=== PATIENT | female | born 1965 | race Caucasian/White ===

== ENCOUNTER 2023-06-08 07:46 | Day surgery (SDC) | payer OTHER ==
[2023-06-08] MEDS ORDERED: ACETAMINOPHEN 1000 MG/100 ML BAG IVPB ONE ×2 (08:36→18:31)
[2023-06-08 08:46] VITALS: BMI 28.3
[2023-06-08 09:19] LABS: INR 1.07 (0.83-1.09); PROTHROMBIN TIME (PATIENT) 12.4 SEC (9.7-13.0)
[2023-06-08] MEDS ORDERED: ACETAMINOPHEN 1000 MG/100 ML BAG IVPB PRN (09:19)
[2023-06-08 09:20] LABS: HEMATOCRIT 39.2 % (32.4-45.2); HEMOGLOBIN 12.6 G/dL (10.7-15.3); MCHC 32.2 g/dl (32.0-36.0); MEAN CELL VOLUME 90.1 fl (80-96); MEAN PLT VOLUME 7.8 fl (7.5-11.1); PLATELET COUNT 314.6 10^3/uL (134-434); RBC 4.35 10^6/uL (3.60-5.2); RDW 14.8 % (11.6-15.6); WHITE BLOOD COUNT 6.1 10^3/uL (4.0-10.8)
[2023-06-08 09:29] LABS: ALBUMIN 4.2 g/dl (3.4-5.0); BILIRUBIN,TOTAL 0.5 mg/dl (0.2-1); CALCIUM 9.8 mg/dl (8.5-10.1); CREATININE 0.7 mg/dl (0.6-1.3); POTASSIUM 3.9 mmol/L (3.5-5.1); TOT PROT 6.6 g/dl (6.4-8.2)
[2023-06-08] MEDS ORDERED: ROPIVACAINE HCL 0.5% 30ML VIAL ONE (13:42)
[2023-06-08] MEDS ORDERED: MIDAZOLAM HCL 2 MG/2 ML SINGLE DOSE VIAL ONE (13:42)
[2023-06-08] MEDS ORDERED: DEXAMETHASONE SOD PHOSPHATE/PF 10 MG/ML SDV ONE (13:42)
[2023-06-08] MEDS ORDERED: FENTANYL CITRATE/PF 50 MCG/ML VIAL ONE (13:57)
[2023-06-08] MEDS ORDERED: PROPOFOL 20 ML ONE (14:09)
[2023-06-08] MEDS ORDERED: SUCCINYLCHOLINE CHLORIDE 200 MG/10 ML SYRINGE ONE (14:10)
[2023-06-08] MEDS ORDERED: ePHEDrine SULFATE 50 MG/1 ML AMPULE ONE (14:32)
[2023-06-08] MEDS ORDERED: ONDANSETRON 4 MG/2 ML VIAL ONE (15:54)
[2023-06-08] MEDS ORDERED: ceFAZolin SODIUM 1 GM VIAL ONE (15:54)
[2023-06-08] MEDS ORDERED: TRANEXAMIC ACID 1000 MG/10 ML VIAL ONE (17:34)
[2023-06-08] MEDS ORDERED: ACETAMINOPHEN INJECTION 100 ML IVPB ONE (17:37)
[2023-06-08] MEDS ORDERED: ALBUTEROL SO4 HFA INHALER IH ONE (17:51)
[2023-06-08] MEDS ORDERED: ONDANSETRON 4 MG/2 ML VIAL IVPUSH PRN (18:30)
[2023-06-08] MEDS ORDERED: PROMETHAZINE HCL 25 MG/1 ML VIAL IVPB PRN (18:30)
[2023-06-08] MEDS ORDERED: oxyCODONE HCL 5 MG TABLET PO PRN ×2 (18:30)
[2023-06-08] MEDS ORDERED: LACTATED RINGERS SOLUTION 1,000 ML IV SCH (18:30)
[2023-06-08] MEDS ORDERED: ACETAMINOPHEN 325 MG PO PRN (18:38)
[2023-06-08] MEDS: KETOROLAC TROMETHAMINE 30 MG/1 ML VIAL IVPUSH SCH (18:45)
[2023-06-08] MEDS: CEFAZOLIN SODIUM 2 GM in DEXTROSE 5%-WATER 100 ML IVPB SCH (21:25)
[2023-06-08] MEDS: GABAPENTIN 300 MG CAPSULE PO SCH (21:25)
[2023-06-08] MEDS: GLYCOPYRROLATE 1 MG TABLET PO SCH (21:26)
[2023-06-08] MEDS ORDERED: GABAPENTIN 300 MG CAPSULE PO SCH (22:00)
[2023-06-08] MEDS ORDERED: diphenhydrAMINE HCL 25 MG CAPSULE (FP) PO SCH (22:00)
[2023-06-08] MEDS ORDERED: PATIENT'S OWN MEDICATION (NON-FORMULARY) (Methenamine Hippurate [Hiprex] 1 GM Tablet) PO SCH (22:00)
[2023-06-09] MEDS: KETOROLAC TROMETHAMINE 30 MG/1 ML VIAL IVPUSH SCH ×2 (03:09→08:02)
[2023-06-09] MEDS: CEFAZOLIN SODIUM 2 GM in DEXTROSE 5%-WATER 100 ML IVPB SCH ×2 (03:10→09:21)
[2023-06-09 04:23] VITALS: PULSE 66
[2023-06-09] MEDS: GLYCOPYRROLATE 1 MG TABLET PO SCH (06:05)
[2023-06-09 07:56] LABS: HEMATOCRIT 31.9 % (32.4-45.2); HEMOGLOBIN 10.2 G/dL (10.7-15.3); MCH 29.1 pg (25.7-33.7); MEAN CELL VOLUME 91.1 fl (80-96); MEAN PLT VOLUME 8.1 fl (7.5-11.1); PLATELET COUNT 267.4 10^3/uL (134-434); RDW 14.6 % (11.6-15.6)
[2023-06-09] MEDS ORDERED: TAMSULOSIN HCL 0.4 MG CAP PO SCH (08:30)
[2023-06-09 08:37] LABS: CALCIUM 8.8 mg/dl (8.5-10.1); CREATININE 0.8 mg/dl (0.6-1.3); POTASSIUM 4.2 mmol/L (3.5-5.1)
[2023-06-09] MEDS: GABAPENTIN 300 MG CAPSULE PO SCH (09:21)
[2023-06-09] MEDS ORDERED: ASCORBIC ACID 500 MG TABLET (FP) PO SCH (10:00)
[2023-06-09] MEDS ORDERED: LORATADINE 10 MG TABLET PO SCH (10:00)
[2023-06-09] MEDS ORDERED: CHOLECALCIFEROL (VIT D3) 1,000 UNIT (25 MCG) TABLET PO SCH (10:00)
[2023-06-09] MEDS ORDERED: PATIENT'S OWN MEDICATION (NON-FORMULARY) (Mirabegron [Myrbetriq] 50 MG Tab.Er.24h) PO SCH (10:00)
[2023-06-09 10:12] VITALS: BP 118/59; RESP 18; TEMP 98.2
== END 2023-06-09 10:14 | disposition home or self-care (01) ==
LOC: FER 07:46 → FASUSAT 08:47 → FM/S 18:44 → FASUSAT 06-09 10:14
PROVIDERS: ATTEND Internal Medicine
PROC: 0PSL04Z Reposition Left Ulna with Internal Fixation Device, Open Approach (ICD-10-PCS; 2023-06-08)
PROC: 0PSJ04Z Reposition Left Radius with Internal Fixation Device, Open Approach (ICD-10-PCS; principal; 2023-06-08 15:07)
DX: S52.202A Unspecified fracture of shaft of left ulna, initial encounter for closed fracture (principal); S52.302A Unspecified fracture of shaft of left radius, initial encounter for closed fracture; W19.XXXA Unspecified fall, initial encounter; Y93.89 Activity, other specified; Y92.9 Unspecified place or not applicable
CPT/HCPCS: 25575; C1713; 36415; 73090-TC-LT-FY; 73110-TC-LT-FY; 80048; 80053; 85027; 85610; 86850; 86900; 86901; 93005; 94760; 99285-25